=== PATIENT | male | born 1990 | race American Indian/Alaskan Native ===

== ENCOUNTER → 2016-04-29 | Outpatient (CLI) | payer MEDICAID | END | disposition home or self-care (01) | LOC: CFH 11:16 → MERGE 11:16 | PROVIDERS: ATTEND Nurse Practitioner | DX: S93.324A Dislocation of tarsometatarsal joint of right foot, initial encounter (principal); S92.321A Displaced fracture of second metatarsal bone, right foot, initial encounter for closed fracture; S93.331A Other subluxation of right foot, initial encounter; X58.XXXA Exposure to other specified factors, initial encounter; Y93.89 Activity, other specified; Y92.89 Other specified places as the place of occurrence of the external cause; Y99.8 Other external cause status ==

== ENCOUNTER 2016-05-06 13:17 | Day surgery (SDC) | payer MEDICAID ==
[~2016-05-06] VITALS: Ht 180.3 cm; Wt 81.8 kg
[2016-05-06 13:59] VITALS: BP 130/81
[2016-05-06] MEDS ORDERED: LACTATED RINGERS 1,000 ML IV SCH (14:02)
[2016-05-06] MEDS ORDERED: OXYC1TAB7 PO (14:06)
[2016-05-06] MEDS ORDERED: CEPH-376 PO (14:06)
[2016-05-06] MEDS ORDERED: HYDR50CA2 PO (14:06)
[2016-05-06] MEDS ORDERED: MIDAZOLAM 1 MG/ML, 2ML ONE (15:32)
[2016-05-06] MEDS ORDERED: FENTANYL PF 250 MCG/5ML ONE (15:32)
[2016-05-06] MEDS ORDERED: ONDANSETRON 2MG/ML, 2ML ONE (16:35)
[2016-05-06] MEDS ORDERED: DEXAMETHASONE 4 MG/ML, 1ML ONE (16:35)
[2016-05-06] MEDS ORDERED: PROPOFOL 10 MG/ML, 20ML ONE (16:35)
[2016-05-06] MEDS ORDERED: CEFAZOLIN 1,000 MG ONE (16:35)
[2016-05-06] MEDS ORDERED: ONDANSETRON 2MG/ML, 2ML IVPush PRN (17:30)
[2016-05-06] MEDS ORDERED: FENTANYL PF 100 MCG/2ML IV PRN (17:30)
[2016-05-06] MEDS ORDERED: OXYcodone 5 MG/5 ML ORAL.SOL UDC PO PRN (17:30)
[2016-05-06] MEDS ORDERED: LABETALOL 5MG/ML, 20ML IV PRN (17:30)
[2016-05-06] MEDS ORDERED: MEPERIDINE/PF 25MG/0.5ML IVPush PRN (17:30)
[2016-05-06] MEDS ORDERED: HYDROmorphone 1 MG/ML, 1ML IV PRN (17:30)
[2016-05-06] MEDS ORDERED: ACETAMINOPHEN 325 MG TABLET PO PRN (17:30)
[2016-05-06] MEDS ORDERED: PROMETHAZINE 25 MG/ML, 1ML IV PRN (17:30)
[2016-05-06] MEDS ORDERED: hydrALAzine 20 MG/ML, 1ML IV PRN (17:30)
[2016-05-06] MEDS ORDERED: ALBUTEROL/IPRATROPIUM 2.5MG/0.5MG, 3 ML NPPB PRN (17:30)
[2016-05-06] MEDS ORDERED: MIDAZOLAM 1 MG/ML, 2ML IV PRN (17:30)
[2016-05-06] MEDS ORDERED: ACETAMINOPHEN 325 MG TABLET ONE (18:11)
[2016-05-06] MEDS ORDERED: OXYcodone 5 MG/5 ML ORAL.SOL UDC ONE (18:11)
[2016-05-06] MEDS ORDERED: ACETAMINOPHEN 650 MG/20.3 ML UDC ONE (18:11)
[2016-05-06] MEDS ORDERED: BUPIVACAINE/PF 0.5% ONE (20:42)
== END 2016-05-06 21:05 | disposition home or self-care (01) ==
LOC: OUT 13:17 → 4NOR 19:30 → OUT 21:05
PROVIDERS: ATTEND Orthopaedic Surgery
DX: S93.325A Dislocation of tarsometatarsal joint of left foot, initial encounter (principal); Z87.891 Personal history of nicotine dependence; X50.1XXA Overexertion from prolonged static or awkward postures, initial encounter; Y93.9 Activity, unspecified; Y92.9 Unspecified place or not applicable; Y99.9 Unspecified external cause status
CPT/HCPCS: 28615; 73630; 76000; C1713; J0690; J1100; J2250; J2405; J2704; J3010; J3490; J7120; 76001